=== PATIENT | female | born 1970 | race Caucasian/White ===

== ENCOUNTER 2017-07-03 10:44 | Emergency (ER) | payer OTHER ==
[~2017-07-03] VITALS: Ht 162.6 cm; Wt 64.0 kg
[~2017-07-03 10:44] MED LIST: ALPR.5 PO; CIPR-9 PO; DEXI30CA PO; ESZO3TAB4 PO; HYDR-3583 PO; LEVO.075 PO; METR-1 PO; NORC5TAB PO; XYZA5TAB2 PO; ZOLO25TA PO
[2017-07-03 10:46] VITALS: BP 121/67; PULSE 61; RESP 16; TEMP 98.2; O2SAT 99
[2017-07-03] MEDS ORDERED: MEDR4PAK PO (11:05)
--- NOTE | 2017-07-03 11:09 | PD ---
HPI Chief Complaint: Musculoskeletal Complaint Time Seen by Provider: 10:56 Travel History International Travel<30 days: No Contact w/Intl Traveler<30days: No Traveled to known affect area: No History of Present Illness HPI 46-year-old female with a history of right shoulder pain and surgery presents emergency department for evaluation of right shoulder pain that started at 3:00 this morning. Says that the right shoulder began hurting spontaneously and she does not know why. She denies repetitive movements, increased activity or injury. She denies any numbness tingling. Says the pain is moderate in severity and radiates down the arm. Patient points to the proximal aspect of her humerus and anterior shoulder. Says she is able to move the arm however, this is painful. Says that she took a Wylie 10 mg and Advil this morning without significant improvement. Patient has this medication for multiple orthopedic surgeries previously. She has no other complaints today. PFSH Past Medical History Anxiety: Yes Depression: Yes Diminished Hearing: No Diverticulitis: Yes GERD: Yes Insomnia: Yes Immunizations Current: Yes Thyroid Disease: Yes Tetanus Vaccination: Unknown Influenza Vaccination: No ?: Not Past Surgical History Hysterectomy: Yes Neurologic Surgery: Yes (CERVICAL FUSIONS X 2 LEVELS C2-C6) Oral Surgery: Yes (ESOPHAGEAL DILITATIONS X 2) Thoracic Surgery: Yes (BREAST AUGMENTATION) Other Surgery: Yes (LEFT THUMB X 3, RIGTH THUMB X 1, RIGHT WRIS X 1, RIGHT SHOULD X 1 ) Social History Alcohol Use: Yes (SOCIALLY) Tobacco Use: No Substance Use: No Allergies-Medications (Allergen,Severity, Reaction): Coded Allergies: No Known Allergies (Verified Adverse Reaction, Unknown, 07/03/17) Reported Meds & Prescriptions Reported Meds & Active Scripts Active Medrol Dosepak (Methylprednisolone) 4 Mg Dspk 4 Mg PO DIRECTED Per Pharmacist direction Wylie (Hydrocodone-Acetaminophen) 5-325 mg Tab 1 Tab PO Q6H PRN Flagyl (Metronidazole) 500 Mg Tab 500 Mg PO BID 10 Days Cipro (Ciprofloxacin HCl) 500 Mg Tab 500 Mg PO BID 10 Days Reported Hydrocodone-Acetaminophen 10-325 mg Tab 1 Tab PO Q6H PRN Zoloft (Sertraline HCl) 25 Mg Tab 25 Mg PO DAILY Synthroid (Levothyroxine Sodium) 75 Mcg Tab 75 Mcg PO DAILY Dexilant (Dexlansoprazole) 30 Mg Cap Unknown Dose PO DAILY Xyzal (Levocetirizine) 5 Mg Tab 5 Mg PO HS Lunesta (Eszopiclone) 3 Mg Tab 3 Mg PO HS PRN Xanax (Alprazolam) 0.5 Mg Tab 0.5 Mg PO DIRECTED PRN Review of Systems Except as stated in HPI: all other systems reviewed are Neg Physical Exam Narrative GENERAL: Well-nourished, well-developed patient, in NAD SKIN: Focused skin assessment warm/dry. No rashes or lesions. HEAD: Normocephalic. Atraumatic. EYES: No scleral icterus. No injection or drainage. NECK: Supple, trachea midline. No JVD. No meningismus. CARDIOVASCULAR: Regular rate and rhythm without murmurs, gallops, or rubs. RESPIRATORY: Breath sounds equal bilaterally. No accessory muscle use. No wheezes, rales, or rhonchi MUSCULOSKELETAL: No cyanosis, or edema. Right shoulder-no tenderness palpation of the proximal humerus. Slight edema of the anterior shoulder near the AC joint with likely bursitis. Limited range of motion although she does have decent range of motion based off of the pain she is having. Neurovascular intact. BACK: Nontender without obvious deformity. No CVA tenderness. Data Data Last Documented VS Vital Signs Date Time Temp Pulse Resp B/P (MAP) Pulse Ox O2 Delivery O2 Flow Rate FiO2 07/03/17 10:46 98.2 61 16 121/67 (85) 99 Orders Orders Ed Discharge Order (07/03/17 11:10) MDM Medical Decision Making Medical Screen Exam Complete: Yes Emergency Medical Condition: Yes Differential Diagnosis Right shoulder contusion, bursitis, cellulitis, fracture, osteonecrosis, avascular necrosis, sprain, strain Narrative Course 46-year-old female presents emergency department evaluation of right shoulder pain that started this morning. Patient has a history of extensive shoulder and other orthopedic injuries and takes Wylie as needed for pain at home. She does not remember any inciting events or excessive activity recently. Vital signs are stable. Her history and physical is most consistent with bursitis of the shoulder. I recommended that she follow-up with a primary care physician and orthopedics for further evaluation. She may need injections versus physical therapy versus reevaluation by her orthopedic physician. Will prescribe prednisone to reduce the inflammation of her shoulder. Patient has pain medication at home. She states understanding and will comply. Diagnosis Primary Impression: Shoulder pain Qualified Codes: M25.511 - Pain in right shoulder Referrals: Orthopedist Primary Care Physician Departure Forms: Tests/Procedures, Work Release Enter return to work date: July 06, 2017 Additional Instructions: Use ice or heat for symptom relief. If no contraindications, you may use Tylenol or Motrin per package instructions for your pain. Continue moving to the shoulder to reduce complications. Highly recommend he follow-up with the primary care physician within 2-3 days. Follow-up with orthopedics for further evaluation and treatment. If symptoms persist or worsen, return to the emergency department. Scripts Methylprednisolone Dosepak (Medrol Dosepak) 4 Mg Dspk 4 MG PO DIRECTED, #1 DSPK 0 Refills Per Pharmacist direction Prov: Amanda Khalil DO 07/03/17 Disposition: 01 DISCHARGE HOME Condition: Stable Deidre Dan July 03, 2017 11:09
== END 2017-07-03 11:17 | disposition home or self-care (01) ==
LOC: PHEFT 10:44
DX: M25.511 Pain in right shoulder (principal); G47.00 Insomnia, unspecified; K21.9 Gastro-esophageal reflux disease without esophagitis; F41.8 Other specified anxiety disorders
CPT/HCPCS: 99283